=== PATIENT | male | born 1980 | race Caucasian/White ===

== ENCOUNTER 2018-12-10 16:03 | Emergency (ER) | payer OTHER ==
--- NOTE | 2018-12-10 16:06 | UC ---
Skin Complaint HPI - HPI Summary HPI Summary: 38 yo male presents with rash to his chest and upper back for 1 month. He tells me that he saw his PCP for this a few weeks ago and was rx'd a steroid cream which did not help. The areas have pustules that he has tried to pop with no purulent matter discharged. No new clothing, soaps, detergents, or lotions. Denies fever, sore throat, swelling. - History of Current Complaint Time Seen by Provider: 12/10/18 16:06 Stated Complaint: RASH Hx Obtained From: Patient Onset/Duration: Gradual Onset Onset Severity: Mild Current Severity: Mild Pain Intensity: 1 - Allergy/Home Medications Allergies/Adverse Reactions: Allergies Allergy/AdvReac Type Severity Reaction Status Date / Time No Known Allergies Allergy Verified 12/10/18 16:13 Home Medications: Home Medications Hydrocortisone 1% CREAM* [Hytone Cream 1%*] 1 applic TOPICAL BID 12/10/18 [ History Confirmed 12/10/18] PMH/Surg Hx/FS Hx/Imm Hx Endocrine History: Thyroid Disease Respiratory History: Asthma - Surgical History Surgical History: Yes Surgery Procedure, Year, and Place: 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 - Family History Known Family History: Positive: None - Social History Occupation: Employed Full-time Lives: With Family Alcohol Use: None Substance Use Type: None Smoking Status (MU): Current Every Day Smoker Type: Cigars Household Exposure Type: Cigars Review of Systems All Other Systems Reviewed And Are Negative: Yes Constitutional: Positive: Negative Skin: Positive: Rash Eyes: Positive: Negative ENT: Positive: Negative Respiratory: Positive: Negative Cardiovascular: Positive: Negative Neurovascular: Positive: Negative Neurological: Positive: Negative Psychological: Positive: Negative Physical Exam - Summary Physical Exam Summary: GENERAL: NAD. WDWN. No pain distress. SKIN: Chest and upper back with diffuse 1-2mm pustules with erythematous bases. NTTP. No streaking, bleeding, or drainage. NECK: Supple. Nontender. No lymphadenopathy. CHEST: No accessory muscle use. Breathing comfortably and in no distress. CV: Pulses intact. Cap refill <2seconds NEURO: Alert. PSYCH: Age appropriate behavior. Triage Information Reviewed: Yes Vital Signs: Vital Signs: Temp Pulse Resp BP Pulse Ox 98.4 F 115 18 119/82 100 12/10/18 16:09 12/10/18 16:09 12/10/18 16:09 12/10/18 16:09 12/10/18 16:09 Vital Signs Reviewed: Yes Course/Dx - Course Course Of Treatment: Suspect folliculitis. - Diagnoses Provider Diagnosis: Folliculitis Discharge - Sign-Out/Discharge Documenting (check all that apply): Patient Departure All imaging exams completed and their final reports reviewed: No Studies - Discharge Plan Condition: Stable Disposition: HOME Prescriptions: Cephalexin CAP* [Keflex CAP*] 500 mg PO TID #21 cap Mupirocin 2% CREAM* [Bactroban 2% CREAM*] 1 applic TOPICAL BID #1 tube Patient Education Materials: Folliculitis (ED) Referrals: No Primary Care Phys,NOPCP [Primary Care Provider] - Marco A Sy MD [Medical Doctor] - If Needed Additional Instructions: If you develop a fever, shortness of breath, chest pain, new or worsening symptoms - please call your PCP or go to the ED immediately. Try not to pop or itch the area as these may spread If your rash does not improve - please call Dermatology at the number below to schedule an appointment for a recheck - Billing Disposition and Condition Condition: STABLE Disposition: Home - Attestation Statements Provider Attestation: I was available for consult. This patient was seen by the JE. The patient was not presented to, seen by, or examined by me. -Milka
[2018-12-10 16:13] VITALS: BP 119/82
== END 2018-12-10 16:30 | disposition home or self-care (01) ==
LOC: UCEAST 16:03
DX: L73.9 Follicular disorder, unspecified (principal); J45.909 Unspecified asthma, uncomplicated; F17.210 Nicotine dependence, cigarettes, uncomplicated
CPT/HCPCS: 99212; G0463